=== PATIENT | female | born 1990 | race Two or more races ===

== ENCOUNTER 2017-05-29 23:08 | Emergency (ER) | payer SELFPAY ==
[~2017-05-29] VITALS: Ht 162.6 cm; Wt 86.2 kg
[2017-05-30 00:25] VITALS: BP 137/63
[2017-05-30 00:30] LABS: BILIRUBIN,URINE NEGATIVE (NEG); GLUCOSE,URINE NEGATIVE (NEG); NITRITE,URINE NEGATIVE (NEG); PROTEIN,URINE NEGATIVE (NEG-TRACE); UROBILINOGEN,URINE 0.2 mg/dL (0.2 mg/dL)
[2017-05-30 00:40] LABS: BACTERIA,URINE MANY /HPF (0-FEW); RBC,URINE OCC /HPF (0-2); SQUAMOUS EPITHELIAL CELL,UR MANY /LPF; WBC,URINE 20-40 /HPF (0-4)
[2017-05-30 00:52] LABS: BASO % 0 % (0-3); EOS % 6 % (0-3); HEMATOCRIT 41.5 % (36.0-47.0); HEMOGLOBIN 13.9 g/dL (12.0-15.5); LYMPH # 2.8 x10^3/uL (1.0-4.8); LYMPH % 37 % (24-48); MEAN CORPUSCULAR HEMOGLOBIN 31 pg (25-35); MEAN CORPUSCULAR HGB CONC 33 g/dL (31-37); MEAN CORPUSCULAR VOLUME 92 fL (79-100); MONO % 9 % (0-9); NEUT % 48 % (31-73); PLATELET COUNT 147 x10^3/uL (140-400); WHITE BLOOD COUNT 7.6 x10^3/uL (4.0-11.0)
[2017-05-30 01:11] LABS: CALCIUM 8.3 mg/dL (8.5-10.1); CREATININE 0.8 mg/dL (0.6-1.0); POTASSIUM 3.3 mmol/L (3.5-5.1)
[2017-05-30 01:17] LABS: ALBUMIN 3.2 g/dL (3.4-5.0); ALBUMIN/GLOBULIN RATIO 0.7 (1.0-1.7); TOTAL BILIRUBIN 0.1 mg/dL (0.2-1.0); TOTAL PROTEIN 7.5 g/dL (6.4-8.2)
--- NOTE | 2017-05-30 02:28 | RAD ---
EXAM: OB < 14 WKS HISTORY: ABD PAIN NO HCG QUANT @ THIS TIME POSITIVE PREG TEST COMPARISON: None. TECHNIQUE: Transverse and longitudinal sonography of the pelvis is performed utilizing transabdominal and transvaginal transducers. FINDINGS: Transabdominal imaging demonstrates an anteflexed uterus measuring 9.2 x 5.7 x 6.6 cm. Within the fundal region of the uterus is a rounded gestational sac with largest gestational sac diameter of 1.8 cm. An embryo is visualized within the gestational sac with crown-rump length of 1.4 cm corresponding with a gestational age of 7 weeks 5 days. heart rate of 171 bpm documented. Neither ovary is visualized. Transvaginal imaging demonstrates the uterus to measure 9.0 x 5.25 6.0 cm. Gestational sac measures up to 2.6 cm. Yolk sac measures 3 mm. [place]-rump length of 1.5 cm corresponding with ultrasound gestational age of 7 weeks 6 days. heart rate of 169 bpm documented. The right ovary is visualized measuring 2.5 x 2.3 x 2.1 cm, with internal blood flow documented. The left ovary is visualized measuring 2.7 x 1.2 x 1.1 cm, with internal blood flow documented. No free fluid is seen within the provided images. IMPRESSION: Single live intrauterine with ultrasound gestational age of 7 weeks 5 days. Both ovaries visualized with blood flow documented. Electronically signed by: Hayde Martinez MD (05/30/2017 2:25 AM) [facility]
[2017-05-30] MEDS ORDERED: CEPHALEXIN 250 MG CAPSULE. PO ONE (02:30)
[2017-05-30] MEDS ORDERED: CEPH-264 PO (02:39)
[2017-05-30] MEDS ORDERED: PNV1TABL34 PO (02:39)
[2017-05-30] MEDS ORDERED: ONDA4TAB7 PO (02:47)
--- NOTE | 2017-05-30 06:54 | ED.ADGEN ---
Past Medical History Past Medical History: No Pertinent History Past Surgical History: No Surgical History Alcohol Use: None Drug Use: None Adult General Chief Complaint Chief Complaint: ABDOMINAL PAIN HPI HPI Patient is a 26 year old woman, who presents to the emergency department with a complaint of abdominal pain and dysuria over the past several days. Patient's last menstrual period was 3 months ago, she had a previous miscarriage several years ago, and states that she might be . Patient is primarily [place] speaking, translation is assisted by family at bedside at patient's request. Patient denies any fevers or chills, any nausea or vomiting, any focal weakness , numbness, tingling, injuries, concern for STI exposures, any discharge or drainage from the vagina. She does not have an PROCUREMENT DIRECTOR, and is not taking vitamins. Review of Systems Review of Systems Constitutional: Denies fever or chills. [] Eyes: Denies change in visual acuity. [] HENT: Denies nasal congestion or sore throat. [] Respiratory: Denies cough or shortness of breath. [] Cardiovascular: Denies chest pain or edema. [] GI: Denies nausea, vomiting, bloody stools or diarrhea. [] Complaining of cramping lower abdominal pain over the past several days. : Pain after urination. No hematuria. No discharge. Musculoskeletal: Denies back pain or joint pain. [] Integument: Denies rash. [] Neurologic: Denies headache, focal weakness or sensory changes. [] Endocrine: Denies polyuria or polydipsia. [] Lymphatic: Denies swollen glands. [] Psychiatric: Denies depression or anxiety. [] Current Medications Current Medications Current Medications Medications (Trade) Dose Ordered Sig/Kamran Start Time Stop Time Status Last Admin Dose Admin Cephalexin HCl (Keflex) 500 mg 1X ONCE 05/30/17 02:30 05/30/17 02:31 DC 05/30/17 02:23 500 MG Allergies Allergies Allergies Coded Allergies Type Severity Reaction Last Updated Verified No Known Drug Allergies 05/30/17 No Physical Exam Physical Exam Constitutional: Well developed, well nourished, no acute distress, non-toxic appearance. [] HENT: Normocephalic, atraumatic, bilateral external ears normal, oropharynx moist, no oral exudates, nose normal. [] Eyes: PERRLA, EOMI, conjunctiva normal, no discharge. [] Neck: Normal range of motion, no tenderness, supple, no stridor. [] Cardiovascular:Heart rate regular rhythm, no murmur , S1, S2, rubs or gallops. [ ] Lungs & Thorax: Bilateral breath sounds clear to auscultation [] Abdomen: Bowel sounds normal, soft, mild tenderness palpation in the suprapubic region and pelvic region, no rebound, rigidity or guarding, no masses, no pulsatile masses. [] Skin: Warm, dry, no erythema, no rash. [] Back: No tenderness, no CVA tenderness. [] Extremities: No tenderness, no cyanosis, no clubbing, ROM intact, no edema. Negative Homans sign. [] Neurologic: Alert and oriented X 3, normal motor function, normal sensory function, no focal deficits noted. [] Psychologic: Affect normal, judgement normal, mood normal. [] Current Patient Data Vital Signs Vital Signs Date Time Temp Pulse Resp B/P (MAP) Pulse Ox O2 Delivery O2 Flow Rate FiO2 05/30/17 00:25 98.7 82 18 137/63 (87) 99 Room Air 98.7 Lab Values Laboratory Tests Test 05/29/17 23:31 05/30/17 00:15 05/30/17 00:46 POC Urine HCG, Qualitative Hcg positive (Negative) Urine Collection Type Unknown Urine Color Yellow Urine Clarity Cloudy Urine pH 6.0 Urine Specific [place] 1.020 Urine Protein Negative mg/dL (NEG-TRACE) Urine Glucose (UA) Negative mg/dL (NEG) Urine Ketones (Stick) Negative mg/dL (NEG) Urine Blood Negative (NEG) Urine Nitrite Negative (NEG) Urine Bilirubin Negative (NEG) Urine Urobilinogen Dipstick 0.2 mg/dL (0.2 mg/dL) Urine Leukocyte Esterase Large (NEG) Urine RBC Occ /HPF (0-2) Urine WBC 20-40 /HPF (0-4) Urine Squamous Epithelial Cells Many /LPF Urine Bacteria Many /HPF (0-FEW) Urine Mucus Marked /LPF White Blood Count 7.6 x10^3/uL (4.0-11.0) Red Blood Count 4.50 x10^6/uL (3.50-5.40) Hemoglobin 13.9 g/dL (12.0-15.5) Hematocrit 41.5 % (36.0-47.0) Mean Corpuscular Volume 92 fL (79-100) Mean Corpuscular Hemoglobin 31 pg (25-35) Mean Corpuscular Hemoglobin Concent 33 g/dL (31-37) Red Cell Distribution Width 13.0 % (11.5-14.5) Platelet Count 147 x10^3/uL (140-400) Neutrophils (%) (Auto) 48 % (31-73) Lymphocytes (%) (Auto) 37 % (24-48) Monocytes (%) (Auto) 9 % (0-9) Eosinophils (%) (Auto) 6 % (0-3) H Basophils (%) (Auto) 0 % (0-3) Neutrophils # (Auto) 3.6 x10^3uL (1.8-7.7) Lymphocytes # (Auto) 2.8 x10^3/uL (1.0-4.8) Monocytes # (Auto) 0.7 x10^3/uL (0.0-1.1) Eosinophils # (Auto) 0.4 x10^3/uL (0.0-0.7) Basophils # (Auto) 0.0 x10^3/uL (0.0-0.2) Maternal Serum HCG Beta Subunit 36373 mIU/mL (0-5) H Sodium Level 140 mmol/L (136-145) Potassium Level 3.3 mmol/L (3.5-5.1) L Chloride Level 106 mmol/L (98-107) Carbon Dioxide Level 25 mmol/L (21-32) Anion Gap 9 (6-14) Blood Urea Nitrogen 5 mg/dL (7-20) L Creatinine 0.8 mg/dL (0.6-1.0) Estimated GFR (Cockcroft-Gault) 86.0 BUN/Creatinine Ratio 6 (6-20) Glucose Level 118 mg/dL (70-99) H Calcium Level 8.3 mg/dL (8.5-10.1) L Total Bilirubin 0.1 mg/dL (0.2-1.0) L Aspartate Amino Transferase (AST) 14 U/L (15-37) L Alanine Aminotransferase (ALT) 14 U/L (14-59) Alkaline Phosphatase 42 U/L (46-116) L Total Protein 7.5 g/dL (6.4-8.2) Albumin 3.2 g/dL (3.4-5.0) L Albumin/Globulin Ratio 0.7 (1.0-1.7) L Laboratory Tests 05/30/17 00:46 Laboratory Tests 05/30/17 00:46 EKG EKG Not indicated. [] Radiology/Procedures Radiology/Procedures [][facility] [address] [place] [address] IMAGING REPORT Signed PATIENT: FLACA JESSICA ACCOUNT: [id number] : 1990 LOCATION: ER AGE: 26 SEX: F EXAM STATUS: REG ER ORD. PHYSICIAN: JEFF WONG DO REASON: abd pain/ + preg test PROCEDURE: OB < 14 WKS EXAM: OB < 14 WKS HISTORY: ABD PAIN NO HCG QUANT @ THIS TIME POSITIVE PREG TEST COMPARISON: None. TECHNIQUE: Transverse and longitudinal sonography of the pelvis is performed utilizing transabdominal and transvaginal transducers. FINDINGS: Transabdominal imaging demonstrates an anteflexed uterus measuring 9.2 x 5.7 x 6.6 cm. Within the fundal region of the uterus is a rounded gestational sac with largest gestational sac diameter of 1.8 cm. An embryo is visualized within the gestational sac with crown-rump length of 1.4 cm corresponding with a gestational age of 7 weeks 5 days. heart rate of 171 bpm documented. Neither ovary is visualized. Transvaginal imaging demonstrates the uterus to measure 9.0 x 5.25 6.0 cm. Gestational sac measures up to 2.6 cm. Yolk sac measures 3 mm. [place]-rump length of 1.5 cm corresponding with ultrasound gestational age of 7 weeks 6 days. heart rate of 169 bpm documented. The right ovary is visualized measuring 2.5 x 2.3 x 2.1 cm, with internal blood flow documented. The left ovary is visualized measuring 2.7 x 1.2 x 1.1 cm, with internal blood flow documented. No free fluid is seen within the provided images. IMPRESSION: Single live intrauterine with ultrasound gestational age of 7 weeks 5 days. Both ovaries visualized with blood flow documented. Electronically signed by: Starla Powell MD (05/30/2017 2:25 AM) [facility] DICTATED and SIGNED BY: STARLA POWELL MD DATE: 05/30/17220 CC: JEFF WONG DO; NO PCP ~ Course & Med Decision Making Course & Med Decision Making Pertinent Labs and Imaging studies reviewed. (See chart for details) Laboratory studies and urine obtained, basically very quantitative assay, ultrasound obtained which reveals a single viable intrauterine at 7 weeks 5 days, urinalysis reveals WBCs and bacteria, in conjunction with patient' s symptoms, patient diagnosed with urinary tract infection. Did discuss diagnosis and importance of follow-up at bedside with patient and family. Patient was given contact information for PROCUREMENT DIRECTOR follow-up, also temperature for vitamins, and first dose of Keflex in the ED which he tolerated without issue. Patient discharged home with prescriptions as stated, with clear and detailed return instructions and precautions, and importance of follow-up. Dragon Disclaimer Dragon Disclaimer This electronic medical record was generated, in whole or in part, using a voice recognition dictation system. Departure Impression: Primary Impression: Urinary tract infection affecting Additional Impression: Abdominal pain during in first trimester Disposition: 01 HOME, SELF-CARE Condition: IMPROVED Scripts Ondansetron Hcl (ZOFRAN) 4 Mg Tablet 1 TAB PO Q8HRS Y for NAUSEA/VOMITING, #12 TAB Prov: JEFF WONG DO 05/30/17 Pnv With Ca,No.72/Iron,Carb/Fa ( PLUS IRON TABLET) 1 Each Tablet 1 TAB PO DAILY, #30 TAB 0 Refills Prov: JEFF WONG DO 05/30/17 Cephalexin (KEFLEX) 500 Mg Capsule 1 CAP PO BID, #14 CAP Prov: JEFF WONG DO 05/30/17 Problem Qualifiers JEFF WONG DO May 30, 2017 06:54
== END 2017-05-30 02:57 | disposition home or self-care (01) ==
LOC: ER 23:08
DX: O23.41 Unspecified infection of urinary tract in pregnancy, first trimester (principal); Z3A.01 Less than 8 weeks gestation of pregnancy
CPT/HCPCS: 36415; 76801; 80053; 81001; 81025; 84702; 85025; 87086; 99285-25

== ENCOUNTER 2017-06-30 19:42 | Emergency (ER) | payer SELFPAY ==
[~2017-06-30 19:42] MED LIST: CEPH-264 PO; ONDA4TAB7 PO; PNV1TABL34 PO
[2017-06-30 20:31] VITALS: BP 133/71
--- NOTE | 2017-06-30 20:54 | PHYS DOC ---
Past Medical History Past Medical History: No Pertinent History Past Surgical History: No Surgical History Alcohol Use: None Drug Use: None Adult General Chief Complaint Chief Complaint: FEVER HPI HPI Patient is a 27 year old female presents to the emergency department with complaints of headache and fever or 6 hours. She states she has not measured fever but has felt as if she had a fever. Patient has not taken any Tylenol. She is 12 weeks gestation. Patient is stn-[id number]-[id number] and does have an medical interpreter with her. They were off of the language line but refused stating they would use medical interpreter with them. Review of Systems Review of Systems Constitutional: Fever Eyes: Denies change in visual acuity, redness, or eye pain [] HENT: Denies nasal congestion or sore throat [] Respiratory: Denies cough or shortness of breath [] Cardiovascular: No additional information not addressed in HPI [] GI: Denies abdominal pain, nausea, vomiting, bloody stools or diarrhea [] : Denies dysuria or hematuria [] Musculoskeletal: Denies back pain or joint pain [] Integument: Denies rash or skin lesions [] Neurologic: Headache without focal weakness or sensory change. Endocrine: Denies polyuria or polydipsia [] Current Medications Current Medications Current Medications Medications (Trade) Dose Ordered Sig/Kamran Start Time Stop Time Status Last Admin Dose Admin Acetaminophen (Tylenol) 1,000 mg 1X ONCE 06/30/17 21:00 06/30/17 21:01 DC 06/30/17 21:23 1,000 MG Allergies Allergies Allergies Coded Allergies Type Severity Reaction Last Updated Verified No Known Drug Allergies 05/30/17 No Physical Exam Physical Exam Constitutional: Well developed, well nourished, no acute distress, non-toxic appearance. [] HENT: Normocephalic, atraumatic, bilateral external ears normal, oropharynx moist, no oral exudates, nose normal. [] Eyes: PERRLA, EOMI, conjunctiva normal, no discharge. [] Neck: Normal range of motion, no tenderness, supple, no stridor, no meningeal signs [] Cardiovascular:Heart rate regular rhythm, no murmur [] Lungs & Thorax: Bilateral breath sounds clear to auscultation [] Abdomen: Bowel sounds normal, soft, no tenderness, no masses, no pulsatile masses. [] Skin: Warm, dry, no erythema, no rash. [] Back: No tenderness, no CVA tenderness. [] Extremities: No tenderness, no cyanosis, no clubbing, ROM intact, no edema. [] Neurologic: Alert and oriented X 3, normal motor function, normal sensory function, no focal deficits noted. [] Psychologic: Affect normal, judgement normal, mood normal. [] Current Patient Data Vital Signs Vital Signs Date Time Temp Pulse Resp B/P (MAP) Pulse Ox O2 Delivery O2 Flow Rate FiO2 06/30/17 20:31 98.0 82 20 95 Room Air 98.0 Lab Values Laboratory Tests Test 06/30/17 21:27 06/30/17 21:30 POC Urine HCG, Qualitative Hcg positive (Negative) Urine Collection Type Unknown Urine Color Yellow Urine Clarity Clear Urine pH 7.5 Urine Specific [place] <=1.005 Urine Protein Negative mg/dL (NEG-TRACE) Urine Glucose (UA) Negative mg/dL (NEG) Urine Ketones (Stick) Negative mg/dL (NEG) Urine Blood Negative (NEG) Urine Nitrite Negative (NEG) Urine Bilirubin Negative (NEG) Urine Urobilinogen Dipstick 0.2 mg/dL (0.2 mg/dL) Urine Leukocyte Esterase Negative (NEG) Urine RBC Occ /HPF (0-2) Urine WBC Occ /HPF (0-4) Urine Squamous Epithelial Cells Few /LPF Urine Bacteria 0 /HPF (0-FEW) Influenza Type A Antigen Negative (NEGATIVE) Influenza Type B Antigen Negative (NEGATIVE) EKG EKG [] Radiology/Procedures Radiology/Procedures [] Course & Med Decision Making Course & Med Decision Making Pertinent Labs and Imaging studies reviewed. (See chart for details) She reports that she feels better, no complaints of headache. She appears to be resting, bullae taking by mouth fluids without difficulty in the emergency department. []Rapid strep negative, urinalysis negative, influenza AB negative. Patient short duration of symptoms upon arrival, less than 8 hours, most likely due to a viral illness. She will be provided with viral syndrome symptom management information. She was discharged home. She is to follow-up primary care provider in one to 2 days. Return to the emergency Department for new symptoms or concerns or worsening of current condition. Dragon Disclaimer Dragon Disclaimer This electronic medical record was generated, in whole or in part, using a voice recognition dictation system. Departure Departure Impression: Primary Impression: Viral syndrome Disposition: 01 HOME, SELF-CARE Condition: STABLE Referrals: NO PCP (PCP) [facility] Patient Instructions: Viral Syndrome Additional Instructions: [id number] Tylenol as labeled and is indicated for symptom management. Return to the emergency department new symptoms or concerns or worsening of current condition. SVETLANA FREIRE CUSTOMER CONSULTING MANAGER Jun 30, 2017 20:54
[2017-06-30] MEDS ORDERED: ACETAMINOPHEN 500 MG TABLET PO ONE (21:00)
[2017-06-30 21:40] LABS: BILIRUBIN,URINE NEGATIVE (NEG); GLUCOSE,URINE NEGATIVE (NEG); NITRITE,URINE NEGATIVE (NEG); PH,URINE 7.5; PROTEIN,URINE NEGATIVE (NEG-TRACE); UROBILINOGEN,URINE 0.2 mg/dL (0.2 mg/dL)
[2017-06-30 21:51] LABS: BACTERIA,URINE 0 /HPF (0-FEW); RBC,URINE OCC /HPF (0-2); SQUAMOUS EPITHELIAL CELL,UR FEW /LPF; WBC,URINE OCC /HPF (0-4)
[2017-06-30 22:03] LABS: OBC FLU VALID
[2017-07-01 07:24] LABS: NEGATIVE OBC STREP NEG; POSITIVE OBC STREP POS
== END 2017-06-30 22:55 | disposition home or self-care (01) ==
LOC: ER 19:42
DX: O98.511 Other viral diseases complicating pregnancy, first trimester (principal); B34.9 Viral infection, unspecified; Z3A.12 12 weeks gestation of pregnancy
CPT/HCPCS: 81001; 81025; 87070; 87804; 87880; 99284

== ENCOUNTER 2017-11-02 18:09 | Observation (INO) | payer SELFPAY ==
[2017-11-02] MEDS ORDERED: IV RINGERS,LACTATED 1000ML 1,000 ML IV (18:48)
[2017-11-02 19:20] LABS: BILIRUBIN,URINE NEGATIVE (NEG); CLARITY,URINE CLEAR; COLOR,URINE YELLOW; GLUCOSE,URINE NEGATIVE (NEG); NITRITE,URINE NEGATIVE (NEG); PROTEIN,URINE NEGATIVE (NEG-TRACE); UROBILINOGEN,URINE 0.2 mg/dL (0.2 mg/dL)
== END 2017-11-02 20:00 | disposition home or self-care (01) ==
LOC: 3 SO LND 18:09
DX: O62.9 Abnormality of forces of labor, unspecified (principal); Z3A.36 36 weeks gestation of pregnancy
CPT/HCPCS: 81003; G0378; G0379

== ENCOUNTER 2018-10-27 11:37 | Emergency (ER) | payer SELFPAY ==
[~2018-10-27] VITALS: Ht 167.6 cm; Wt 86.2 kg
[2018-10-27 11:45] VITALS: BP 128/72
--- NOTE | 2018-10-27 12:13 | PHYS DOC ---
Past Medical History Past Medical History: No Pertinent History Past Surgical History: Alcohol Use: None Drug Use: None Adult General Chief Complaint Chief Complaint: SKIN PROBLEM HPI HPI Patient is a 28 year old female with no significant medical history who presents today complaining of a rash to the right forearm that began 5 days ago. Patient states the rash began a tiny blister and has spread to multiple blisters only on the right forearm. Patient denies any fever. Patient through an american sign language interpreter for [employer] she brought to the ED with Review of Systems Review of Systems Constitutional: Denies fever or chills [] Musculoskeletal: Denies back pain or joint pain [] Integument: Right forearm rash Neurologic: Denies headache, focal weakness or sensory changes [] All other systems were reviewed and found to be within normal limits, except as documented in this note. Current Medications Current Medications Current Medications Medications (Trade) Dose Ordered Sig/Kamran Start Time Stop Time Status Last Admin Dose Admin Cetirizine HCl (ZyrTEC) 10 mg 1X STAT 10/27/18 11:58 10/27/18 12:02 DC 10/27/18 12:14 10 MG Prednisone (Prednisone) 60 mg 1X ONCE 10/27/18 12:00 10/27/18 12:02 DC 10/27/18 12:14 60 MG Allergies Allergies Allergies Coded Allergies Type Severity Reaction Last Updated Verified No Known Drug Allergies 05/30/17 No Physical Exam Physical Exam Constitutional: Well developed, well nourished, no acute distress, non-toxic appearance. [] Skin: Right lateral forearm with grouped blisters consistent with shingles. Some of the areas appear to have turned into impetigo, there is crusty yellow drainage from some of the areas. Back: No tenderness, no CVA tenderness. [] Extremities: No tenderness, no cyanosis, no clubbing, ROM intact, no edema. [] Neurologic: Alert and oriented X 3, normal motor function, normal sensory function, no focal deficits noted. [] Psychologic: Affect normal, judgement normal, mood normal. [] Current Patient Data Vital Signs Vital Signs Date Time Temp Pulse Resp B/P (MAP) Pulse Ox O2 Delivery O2 Flow Rate FiO2 10/27/18 11:45 98.0 68 18 128/72 (90) 99 Room Air 98.0 EKG EKG [] Radiology/Procedures Radiology/Procedures [] Course & Med Decision Making Course & Med Decision Making Pertinent Labs and Imaging studies reviewed. (See chart for details) Patient has a shingles rash to the right forearm with some of the areas appearing to have turned to impetigo. Tetanus up-to-date. Discharged with acyclovir, prednisone, Bactroban ointment. Follow-up with PCP in 1-2 weeks. Zyrtec also recommended. Dragon Disclaimer Dragon Disclaimer This electronic medical record was generated, in whole or in part, using a voice recognition dictation system. Departure Departure Impression: Primary Impression: Impetigo Additional Impression: Shingles Disposition: HOME, SELF-CARE Condition: STABLE Referrals: NO PCP (PCP) follow up in 1-2 weeks Patient Instructions: Impetigo, Shingles, [id number] Additional Instructions: You were seen for a shingles rash to the right forearm, some of the areas appear infected. Use the medication prescribed as ordered, follow-up with your own doctor in 1-2 weeks as needed. Scripts Cetirizine Hcl (ZYRTEC) 10 Mg Tablet 1 TAB PO DAILY, #30 TAB 3 Refills Prov: JEFRY DORSEY APRN 10/27/18 Mupirocin Calcium (BACTROBAN CREAM) 15 Gm Cream..g. 1 TINA TP TID, #1 EACH Prov: JEFRY DORSEY APRN 10/27/18 Prednisone (PREDNISONE) 50 Mg Tablet 1 TAB PO DAILY, #5 TAB Prov: JEFRY DORSEY APRN 10/27/18 Acyclovir (ACYCLOVIR) 800 Mg Tablet 1 TAB PO 5XDAY, #50 TAB Prov: JEFRY DORSEY APRN 10/27/18 Problem Qualifiers Additional Impression: Shingles Herpes zoster complications: without complications Qualified Codes: B02.9 - Zoster without complications JEFRY DORSEY APRN Oct 27, 2018 12:13
[2018-10-27] MEDS: predniSONE 20 MG TABLET PO ONE (12:14)
[2018-10-27] MEDS: CETIRIZINE HCL 10 MG TABLET. PO STA (12:14)
[2018-10-27] MEDS ORDERED: CETI10TA22 PO (12:20)
[2018-10-27] MEDS ORDERED: ACYC800T PO (12:20)
[2018-10-27] MEDS ORDERED: MUPI15CR TP (12:20)
[2018-10-27] MEDS ORDERED: PRED50TA PO (12:20)
== END 2018-10-27 12:35 | disposition home or self-care (01) ==
LOC: ER 11:37
DX: L01.09 Other impetigo (principal); B02.9 Zoster without complications; Z98.890 Other specified postprocedural states
CPT/HCPCS: 99283; J7512

== ENCOUNTER 2019-01-18 18:06 | Emergency (ER) | payer SELFPAY ==
[~2019-01-18] VITALS: Ht 162.6 cm; Wt 90.7 kg
[~2019-01-18 18:06] MED LIST changes: +ACYC800T PO; +CETI10TA22 PO; +MUPI15CR TP; +PRED50TA PO
[2019-01-18 19:11] VITALS: BP 129/82
[2019-01-18] MEDS ORDERED: BENZONATATE 100 MG CAPSULE. PO ONE ×2 (19:15→19:30)
[2019-01-18] MEDS ORDERED: PRED50TA PO (19:30)
[2019-01-18] MEDS ORDERED: IPRATRPIUM/ALBUTEROL 0.5/2.5MG 3 ML NEBU. NEB ONE (19:30)
[2019-01-18] MEDS ORDERED: VENTOLIN HFA18 GM INH (19:30)
[2019-01-18] MEDS ORDERED: BENZ100C PO (19:30)
--- NOTE | 2019-01-18 19:30 | PHYS DOC ---
Past Medical History Past Medical History: No Pertinent History Past Surgical History: Alcohol Use: None Drug Use: None Adult General Chief Complaint Chief Complaint: COUGH HPI HPI Patient is a 28 year old female who presents to the ED today complaining of cough and intermittent episodes of shortness of breath, symptoms began a week ago. Patient denies any fever. Denies any nasal congestion. She is in the ED with an curriculum and assessment coordinator for her [place] language. Review of Systems Review of Systems Constitutional: Denies fever or chills [] Eyes: Denies change in visual acuity, redness, or eye pain [] HENT: Denies nasal congestion sore throat [] Respiratory: Reports cough, shortness of breath [] Cardiovascular: No additional information not addressed in HPI [] GI: Denies abdominal pain, nausea, vomiting, bloody stools or diarrhea [] : Denies dysuria or hematuria [] Musculoskeletal: Denies back pain or joint pain [] Integument: Denies rash or skin lesions [] Neurologic: Denies headache, focal weakness or sensory changes [] All other systems were reviewed and found to be within normal limits, except as documented in this note. Current Medications Current Medications Current Medications Medications (Trade) Dose Ordered Sig/Kamran Start Time Stop Time Status Last Admin Dose Admin Albuterol/ Ipratropium (Duoneb) 3 ml 1X ONCE 01/18/19 19:30 01/18/19 19:31 Benzonatate (Tessalon Perle) 100 mg 1X ONCE 01/18/19 19:15 01/18/19 19:16 UNV Allergies Allergies Allergies Coded Allergies Type Severity Reaction Last Updated Verified No Known Drug Allergies 05/30/17 No Physical Exam Physical Exam Constitutional: Well developed, well nourished, no acute distress, non-toxic appearance. [] HENT: Normocephalic, atraumatic, bilateral external ears normal, oropharynx moist, no oral exudates, nose normal. [] Eyes: PERRLA, EOMI, conjunctiva normal, no discharge. [] Neck: Normal range of motion, no tenderness, supple, no stridor. [] Cardiovascular:Heart rate regular rhythm, no murmur [] Lungs & Thorax: Slight wheezing throughout the lung bases. Abdomen: Bowel sounds normal, soft, no tenderness, no masses, no pulsatile masses. [] Skin: Warm, dry, no erythema, no rash. [] Back: No tenderness, no CVA tenderness. [] Extremities: No tenderness, no cyanosis, no clubbing, ROM intact, no edema. [] Neurologic: Alert and oriented X 3, normal motor function, normal sensory function, no focal deficits noted. [] Psychologic: Affect normal, judgement normal, mood normal. [] EKG EKG [] Radiology/Procedures Radiology/Procedures [] Course & Med Decision Making Course & Med Decision Making Pertinent Labs and Imaging studies reviewed. (See chart for details) This is a 28-year-old female patient presented to the ED today with cough and shortness of breath, symptoms began a week ago. Unknown if this patient has a history of asthma but patient is wheezing on arrival to the ED. Given a DuoNeb treatment, given prednisone, discharged with the same. Follow-up with primary care doctor in 1-2 weeks. Dragon Disclaimer Dragon Disclaimer This electronic medical record was generated, in whole or in part, using a voice recognition dictation system. Departure Departure Impression: Primary Impression: Asthma Disposition: 01 HOME, SELF-CARE Condition: STABLE Referrals: NO PCP (PCP) Follow-up with your doctor in 1-2 weeks Patient Instructions: Asthma, Adult, [id number] Additional Instructions: You were evaluated in the emergency room with symptoms consistent of asthma. We put you on medications, take them as prescribed. Follow-up with your doctor in 1-2 weeks. Scripts Albuterol Sulfate (VENTOLIN HFA INHALER) 18 Gm Hfa.aer.ad 2 PUFF INH Q4HRS for FOR ASTHMA, #1 INHALER 0 Refills Prov: JEFRY DORSEY APRN 01/18/19 Benzonatate (TESSALON PERLE) 100 Mg Capsule 1 CAP PO TID, #30 CAP Prov: JEFRY DORSEY APRN 01/18/19 Prednisone (PREDNISONE) 50 Mg Tablet 1 TAB PO DAILY, #4 TAB Prov: JEFRY DORSEY APRN 01/18/19 Problem Qualifiers Primary Impression: Asthma Asthma severity: mild Asthma persistence: unspecified Asthma complication type: unspecified Qualified Codes: J45.909 - Unspecified asthma, uncomplicated JEFRY DORSEY APRN Jan 18, 2019 19:30
== END 2019-01-18 19:46 | disposition home or self-care (01) ==
LOC: ER 18:06
DX: J45.909 Unspecified asthma, uncomplicated (principal); Z98.890 Other specified postprocedural states
CPT/HCPCS: 99283; J7620